=== PATIENT | male | born 1990 | race Caucasian/White ===

== ENCOUNTER 2023-08-28 15:53 | Inpatient (IN) | payer OTHER, SELFPAY ==
[2023-08-28 15:54] VITALS: BP 142/82; PULSE 96; RESP 14; TEMP 37.2; O2SAT 98; BMI 28.1
--- NOTE | 2023-08-28 16:04 | EDS_ITS ---
<Statement entered by Maddi Gonzáles MD - 08/28/23 21:59> I have personally performed a face to face assessment of the patient and have reviewed the SUNIL Note. Patient presents secondary to cough and congestion with rib pain. He has been sick for the past 3 weeks with cough and congestion. He thought he was getting better but then recently worsened again. states has been having sharp. Pain especially at night. He was seen at an urgent care in [place] earlier this week and told that he likely had a chest wall strain. states no testing was done at that time. Patient sitting upright in bed no acute distress. Head and neck examination unremarkable. Heart regular rate and rhythm. Lung sounds are slightly diminished at the bases bilaterally. No significant wheezing or rhonchi. Abdomen soft and nontender. 2 view chest x-ray per my interpretation shows bilateral lower lobe infiltrates. Lab work is reviewed and does not indicate an elevated white count or significant left shift. Given this, patient sent for CTA of the chest. CTA confirms pulmonary emboli with infiltrate versus pulmonary infarct. Patient be started on anticoagulation but given the infarcts will be observed in the hospital. Patient discussed with the hospitalist. HPI History of Present Illness Chief Complaint: Cough Narrative Narrative: 33-year-old male with past medical history of HTN has had 3 weeks of fever, chills, and productive cough. He states he thought his cough was getting better last week but then it worsened again. On [place] he developed right-sided rib cage pain that was worse at night. It seemed to improve but today he has left- sided rib cage pain. Both areas still feel uncomfortable. He also feels short of breath over the last few days. He still has subjective fever and night sweats. He does not smoke. He denies history of DVT/PE. 1 week ago he was on a flight but it was only 1 hour and 15 minutes. He has no leg pain or swelling. No hemoptysis or hormone use. [facility] Medical History (Updated 08/28/23 @ 19:[address] Sun Kan MD) Anxiety and depression Hypertension Kidney stones Home Medications escitalopram oxalate 10 mg tablet (Lexapro) 10 mg PO DAILY mood 08/28/23 [History Last Taken Unknown] lisinopril 10 mg tablet 10 mg PO DAILY blood pressure 08/28/23 [History Last [place] en Unknown] Allergy/AdvReac Type Severity Reaction Status Date / Time No Known Allergies Allergy Verified 08/28/23 15:54 Family History (Updated 08/28/23 @ 19:[address] Sun Kan MD) Father History of venous thromboembolism Hypertension Mother Hypertension Renal cancer Surgical History (Updated 08/28/23 @ 19:[address] Sun Kan MD) History of dental surgery Social History (Updated 08/28/23 @ 19:[address] Sun Kan MD) household members: significant other Smoking Status: Never smoker alcohol intake: never substance use type: does not use ROS ROS ED ROS Narrative Constitutional: Positive for fever, chills, malaise. CVS: Negative for chest pain. Respiratory: Positive for shortness of breath, cough. GI: Negative for abdominal pain, nausea, vomiting. EXAM Physical Exam Narrative Exam Narrative: CONST: Patient sitting in no acute distress. EYES: Normal inspection. NECK: Normal inspection. RESP: No respiratory distress, right basilar crackles. CVS: Regular rate and rhythm, no murmur, no gallop. SKIN: Color normal, no rash, warm, dry, intact. EXTREMITIES: Normal appearance, no pedal edema. NEURO: Oriented x4. PSYCH: Normal affect. Const Vital Signs: 08/28/23 15:54 08/28/23 16:18 08/28/23 18:20 Temperature 99 F Temperature Source Temporal Pulse Rate 96 106 H Respiratory Rate 14 20 H Respiratory Effort Short of Breath Respiratory Depth Normal Respiratory Pattern Normal Blood Pressure 142/82 H 137/81 H Blood Pressure Mean 102 99 Pulse Ox 98 97 Oxygen Delivery Method Room Air Room Air Room Air MDM MDM MDM Narrative Medical decision making narrative: History gathered from: Patient and family Patient had 3 weeks of fever, chills, and cough. He has now developed worsening cough, shortness of breath, bilateral lower rib pain. He appears uncomfortable but nontoxic. Vital signs are within normal limits. Heart is regular with no murmurs. There are right lower lobe crackles. Chest wall and abdomen are nontender. Differential includes viral illness, pneumonia and PE. Chest x-ray showed possible bilateral lower lobe pneumonia but white count returned normal. BMP unremarkable. EKG is nonischemic and troponin less than 3. If he had b ilateral pneumonia I would suspect leukocytosis with 3 weeks of symptoms. I ordered a CTA to rule out clot and it shows moderate PE and bilateral pulmonary infarcts. No right heart strain. Findings were discussed with the patient and his family and he was ordered morphine and Zofran for pain. After speaking with the hospitalist for admission I ordered Eliquis. Patient was admitted in stable condition. Lab Data Attestation: I reviewed the patient's lab results. Labs: Laboratory Results - last 24 hr 08/28/23 16:15 WBC 6.5 RBC 4.87 Hgb 15.1 Hct 43.7 MCV 89.7 MCH 31.0 MCHC 34.6 RDW Std Deviation 37.2 RDW Coeff of Shari 11.5 L Plt Count 211 MPV 8.5 Immature Gran % (Auto) 0.300 Neut % (Auto) 63.7 Lymph % (Auto) 23.8 [place] % (Auto) 10.5 H Eos % (Auto) 1.4 Baso % (Auto) 0.3 Absolute Neuts (auto) 4.1 Absolute Lymphs (auto) 1.54 Nucleated RBC % 0 Sodium 136 Potassium 4.2 Chloride 107 Carbon Dioxide 24.0 Anion Gap 5 BUN 22 H Creatinine 1.09 Estim Creat Clear Calc 95.00 Est GFR (MDRD) Af Amer 101 Est GFR (MDRD) Non-Af 84 BUN/Creatinine Ratio 20.2 H Glucose 117 H Calcium 9.0 Troponin I High Sens < 3 L Radiography Diagnostic Testing: Clinical Impression(s) from Imaging Studies Chest X-Ray 08/28/23 16:06 IMPRESSION: Bibasilar airspace disease suspicious for pneumonia. Electronically Signed: Harleen Mora MD at 16:57 EST Reading Location ID and State: [place]asmo Wade MD Tel , Service support , Chest CTA 08/28/23 17:03 IMPRESSION: 1. Moderate PE. No right heart strain. 2. Findings consistent with left lower lobe pulmonary infarct. 3. Pulmonary infarct versus pneumonia in the right lower lobe. Electronically Signed: Harleen Mora MD at 18:40 EST Reading Location ID and State: Erasmo Wade MD Tel , Service support , ADDENDUM: 08/28/23 1904 IMPRESSION: 1. Moderate PE. No right heart strain. 2. Findings consistent with left lower lobe pulmonary infarct. 3. Pulmonary infarct versus pneumonia in the right lower lobe. N.B. : The above Results were Read Back by Harleen Mora MD to Darius Hyde DO, and understanding confirmed on 08/28/2023 18:57:49 (ET). Electronically Signed: Harleen Mora MD at 18:40 EST Reading Location ID and State: [id number] / Tel , Service support , ED attending interpretation of 2-view chest x-ray shows normal heart size, no acute infiltrate, edema, or effusion. EKG Initial EKG: Attestation: I personally reviewed and interpreted this EKG as follows: Interpretation: Sinus Rhythm and No Acute Injury Pattern Comments: Normal sinus rhythm at [address] changes Discharge Plan Dx/Rx/DC Orders Clinical Impression: Pulmonary emboli, Infarctions, pulmonary Disposition Disposition: Acute Care Hospital [facility] Discharge Date/Time: 08/28/23 19:23
--- NOTE | 2023-08-28 16:06 | RAD_ITS ---
INDICATION: cough EXAMINATION/TECHNIQUE: X-RAY - XR Chest 2 Views COMPARISON: On. FINDINGS: LINES/DEVICES: None. LUNGS: Small right pleural effusion. Airspace disease in the lower lobes, greater on the right. MEDIASTINUM AND CARDIOVASCULAR STRUCTURES: Cardiac silhouette not enlarged. Central airways and mediastinal contour are unremarkable. BONES AND SOFT TISSUES: Unremarkable. RAD/Chest PA and Lateral IMPRESSION: Bibasilar airspace disease suspicious for pneumonia. Electronically Signed: Harleen oMra MD at 16:57 EST Reading Location ID and State: [id number] / Tel , Service support ,
--- NOTE | 2023-08-28 16:12 | ED.RN ---
NO OLD EKG
--- OUTSIDE RECORDS SUMMARY | 2023-08-28 16:27 | XMS RPT_ITS | CCD ---
Author Name Unknown Address [address] [place] [address] Organization [facility] Care Team Providers Care Spacecraft Systems Engineer Name Role Phone SHARLA ELOISA Attending Unavailable SHARLA, ELOISA Consulting Unavailable MANSFIELD, ELOISA Primary Care Unavailable MANSFIELD, ELOISA Admitting Unavailable PROVIDER, UNKNOWN Consulting Unavailable Problems Problem Classification Problem Date Documented Date Episodic/Chronic Essential hypertension (1 source) Essential (primary) hypertension; Translations: [Essential (primary) hypertension] Onset: 06-23-2023 Chronic Other screening for suspected conditions (not mental disorders or infectious disease) (1 source) Encounter for screening for cardiovascular disorders; Translations: [Encounter for screening for cardiovascular disorders] Onset: 06-23-2023 Episodic Results Test Name Value Interpretation Reference Range Facil ity Encounters Encounter Date Encounter Type Care Provider Facility Start: 06-23-2023 End: 06-23-2023 ambulatory [facility] Payers Date Payer Category Payer Unknown [id number] Unknown [id number] Summary Purpose Family History No Family History Records FoundNo Family History Records Found Advance Directives No Advanced Directives Records FoundNo Advanced Directives Records Found Additional Source Comments (unrecognized sect ion and content) No Status Records FoundNo Status Records Found INFORMATION SOURCE (unrecogn ized section and content) DATE CREATED AUTHOR AUTHOR'S ORGANIZ ATION 07/14/[address] [facility] FOR RECORDS PERTAINING TO PATIENTS WHO ARE OR HAVE BEEN ENROLLED IN A CHEMICAL DEPENDENCY/SUBSTANCEABUSE PROGRAM, SOME INFORMATION MAY BE OMITTED. This clinical summary was aggregated from multiple sources. Caution should be exercised in using it in the provision of clinical care. This summary normalizes information from multiple sources, and as a consequence, information in this document may materially change the coding, format and clinical context of patient data. In addition, data may be omitted in some cases. CLINICAL DECISIONS SHOULD BE BASED ON THE PRIMARY CLINICAL RECORDS. [facility]. provides no warranty or guarantee of the accuracy or completeness of information in this document.
[2023-08-28 16:28] LABS: Absolute Lymphocyte Count 1.54 X10^3/uL (0.83-4.51); Absolute Neutrophil Count 4.1 X10^3/uL (2.0-7.7); Basophil# 0.02 X10^3/uL; Basophil% 0.3 % (0-1); Eosinophil# 0.09 X10^3/uL; Eosinophils% 1.4 % (0-5); Hematocrit 43.7 % (40-54); Hemoglobin 15.1 g/dL (13.0-16.5); Lymphocyte # 1.54 X10^3/ul (0.83-4.51); Lymphocyte % 23.8 % (19-41); Mean Corp Hgb Conc 34.6 g/dL (32-36); Mean Corpuscular Volume 89.7 fL (80-94); Mean Platelet Vol. 8.5 fl (6.2-12.0); Monocyte# 0.68 X10^3/uL; Monocyte% 10.5 % (0-10); NRBC Flagged by Analyzer 0 % (0-5); Neutrophil # 4.12 X10^3/uL (2.7-7.7); Neutrophil % 63.7 % (47-70); Platelet Count 211 K/mm3 (150-450); RBC Distribution Width CV 11.5 % (11.6-14.6); RBC Distribution Width SD 37.2 fl (35.1-43.9); Red Blood Count 4.87 M/mm3 (4.6-6.2); White Blood Count 6.5 K/mm3 (4.4-11.0)
[2023-08-28 16:47] LABS: Anion Gap 5 (5-15); BUN 22 mg/dL (7-18); BUN/Creat Ratio 20.2 RATIO (10-20); Chloride 107 mmol/L (98-107); Creatinine, Serum 1.09 mg/dL (0.70-1.30); EST Glomerular Filtration Rate 84 mL/min (>60); Est Glom Filt Rate - Afr Amer 101 mL/min (>60); Glucose 117 mg/dL (74-106); Potassium 4.2 mmol/L (3.5-5.1); Sodium Level 136 mmol/L (136-145); Troponin-I HS < 3 pg/mL (3.0-78.0)
--- NOTE | 2023-08-28 17:03 | CT_ITS ---
We are attempting to reach an attending provider to discuss findings. An addendum with communication details will be sent when the communication is complete. EXAM: CT ANGIOGRAPHY CHEST WITHOUT AND WITH INTRAVENOUS CONTRAST CLINICAL INDICATION: chest pain TECHNIQUE: Helically acquired angiography images were obtained of the chest without and with intravenous contrast. This CT exam was performed using one or more of the following dose reduction techniques: automated exposure control, adjustment of the mA and/or kV according to patient size, and/or use of iterative reconstruction technique. MIP reconstructed images were created and reviewed. CONTRAST: IV 100mL Isovue-370 COMPARISON: No relevant prior studies available. FINDINGS: PULMONARY ARTERIES: Moderate bilateral pulmonary emboli. Emboli in left upper and lower lobe segmental arteries. Emboli in right upper and lower lobe subsegmental arteries. AORTA: Unremarkable. Normal in caliber. No evidence of dissection. GREAT VESSELS OF AORTIC ARCH: Unremarkable. Normal in caliber. No evidence of dissection. LUNGS AND PLEURAL SPACES: Airspace disease in the left lower lobe suspicious for pulmonary infarcts. Moderate airspace disease in the right lower lobe consistent with pneumonia versus pulmonary infarct. Trace bilateral pleural effusions. No mass. HEART: Heart size is normal. RV/LV ratio 0.9. No pericardial effusion. No significant coronary artery calcifications. MEDIASTINUM: Unremarkable. No mediastinal or hilar adenopathy. Esophagus is unremarkable. No hiatal hernia. THYROID: Unremarkable. No thyroid lesions. BONES/JOINTS: Unremarkable. No suspicious lytic or blastic abnormality. LYMPH NODES: Mild right hilar adenopathy. CT/CTA Chest W/WO Contrast IMPRESSION: 1. Moderate PE. No right heart strain. 2. Findings consistent with left lower lobe pulmonary infarct. 3. Pulmonary infarct versus pneumonia in the right lower lobe. Electronically Signed: Harleen Mora MD at 18:40 EST Reading Location ID and State: [id number] / Tel , Service support ,
[2023-08-28 18:20] VITALS: BP 137/81; PULSE 106; RESP 20; O2SAT 97
--- NOTE | 2023-08-28 18:50 | HP.PCM.HOS_ITS ---
HPI - General General Date of Admission: 08/28/23 Date of Service: 08/28/23 Chief Complaint: Fever, chills, cough, chest pain, dyspnea. HPI Narrative The patient is a 33 y/o M w/ PMHx: HTN, Anxiety and Depression who presents to the [facility] ED on 08/28/23 with history of 3 weeks of intermittent fever, chills and productive cough initially improving however worsened over the last week with onset of right-sided pleuritic discomfort worse at night with some improvement however he developed left-sided rib discomfort on day of presentation which persisted with onset of dyspnea and continued intermittent fevers as well as night sweats with history of short less than 1-1/2-hour flight 1 week prior and no history of lower extremity swelling or pain and given persistence prompted eventual ED evaluation. Of note patient's significant other who is present in the ED was sick about a week prior to him becoming ill initially with upper respiratory type symptoms herself however these eventually resolved. He does report a family history in his father of VTE. Patient during [place] time while he had was ill and feeling worse did have increased fatigue malaise and at one point he admits to laying in bed for probably nearly a day. Workup in the ED included T99, heart rate initially 96 with most recent repeat 106, BP 142/82 initially with most recent repeat 137/81, respiratory rate 20, 97% on room air, CBC with WBC 6.5, hemoglobin 15.1, platelet 211 without marked shift, BMP with BUN/creatinine 22/1.09, glucose 117, troponin less than 3, blood culture x 2 pending per ED CTPA with moderate PE with no evidence of any heart strain, fi ndings consistent with a left lower lobe pulmonary infarct, pulmonary infarct versus pneumonia right lower lobe, chest x-ray with bibasilar airspace disease, EKG with normal sinus rhythm with no acute evidence of ischemia. Discussed with ED provider and will obtain hypercoagulable panel within patient to be administered Eliquis. [facility] Medical History (Updated 08/28/23 @ 19:[address] Sun Kan MD) Anxiety and depression Hypertension Kidney stones Home Medications escitalopram oxalate 10 mg tablet (Lexapro) 10 mg PO DAILY mood 08/28/23 [History Last Taken Unknown] lisinopril 10 mg tablet 10 mg PO DAILY blood pressure 08/28/23 [History Last Taken Unknown] Allergy/AdvReac Type Severity Reaction Status Date / Time No Known Allergies Allergy Verified 08/28/23 15:54 Family History (Updated 08/28/23 @ 19:[address] Sun Kan MD) Father History of venous thromboembolism Hypertension Mother Hypertension Renal cancer Surgical History (Updated 08/28/23 @ 19:[address] Sun Kan MD) History of dental surgery Social History (Updated 08/28/23 @ 19:[address] Sun Kan MD) household members: significant other Smoking Status: Never smoker alcohol intake: never substance use type: does not use ROS ROS Narrative Admission Review of Systems: CONSTITUTIONAL: No weight loss, + fever, chills, weakness or fatigue. HEENT: Eyes: No visual loss, blurred vision, double vision or yellow sclerae. Ears, Nose, Throat: No hearing loss, sneezing, congestion, runny nose or sore throat. SKIN: No rash or itching, lesions, wounds. CARDIOVASCULAR: + Pleuritic chest pain. No palpitations, edema, orthopnea, syncopal events. RESPIRATORY: + Dyspnea, cough with occasional sputum production. No wheezing, hemoptysis. GASTROINTESTINAL: No anorexia, nausea, vomiting or diarrhea, abdominal pain, melena, BRBPR. GENITOURINARY: No dysuria, frequency, urgency or retention. NEUROLOGICAL: No headache, dizziness, syncope, paralysis, ataxia, numbness or tingling in the extremities, focal weakness, change in bowel or bladder control, seizure. MUSCULOSKELETAL: + muscle, back pain, joint pain or stiffness. HEMATOLOGIC: No anemia, bleeding or bruising. LYMPHATICS: No enlarged nodes. No history of splenectomy. PSYCHIATRIC: + History of depression and anxiety. ENDOCRINOLOGIC: + reports of sweating, cold or heat intolerance. No polyuria or polydipsia. ALLERGIES: No history of asthma, hives, eczema or rhinitis. Vital Signs Vital Signs Vital Signs: 08/28/23 15:54 08/28/23 16:18 08/28/23 18:20 Temperature 99 F Temperature Source Temporal Pulse Rate 96 106 H Respiratory Rate 14 20 H Respiratory Effort Short of Breath Respiratory Depth Normal Respiratory Pattern Normal Blood Pressure 142/82 H 137/81 H Blood Pressure Mean 102 99 Pulse Ox 98 97 Oxygen Delivery Method Room Air Room Air Room Air Weight Weight: 184 lb 15.485 oz Body Mass Index (BMI) 28.1 Physical Exam Narrative Physical Examination: General: Awake, alert, oriented x 3 and cooperative, seated upright in the ED bed, mildly anxious appearing. Skin: Normal color, normal turgor, no icterus, no cyanosis. HEENT: AT/NC, EOMI, PERRLA, MMM, no carotid bruits or JVD noted. Lungs: Diminished, greater bases, mildly coarse, right greater than left, no evidence of any distress, no wheezing noted. Heart: Tachycardic with regular rhythm; no gallop, rub audible. Abdomen: Soft, NTTP, ND, mildly hyperactive BS, no HSM. Extremities: No cyanosis, clubbing, or edema, no tender to palpation of bilate ral lower extremity/calf regions. Neurological: Patient awake, alert, oriented as noted, cognitive function intact; pupils equally reactive to light and accommodation, cranial nerves II- XII grossly normal, moving all 4 extremities, no focal deficits, strength mildly to moderately global decrease secondary to acute presentation complaints. Psychiatric: Affect appears anxious, does have underlying depression anxiety. Results Lab / Micro Data 08/28/23 16:15 08/28/23 16:15 Labs: Laboratory Results - last 24 hr 08/28/23 16:15: WBC 6.5, RBC 4.87, Hgb 15.1, Hct 43.7, MCV 89.7, MCH 31.0, MCHC 34.6, RDW Std Deviation 37.2, RDW Coeff of Shari 11.5 L, Plt Count 211, MPV 8.5, Immature Gran % (Auto) 0.300, Neut % (Auto) 63.7, Lymph % (Auto) 23.8, [place] % (Auto) 10.5 H, Eos % (Auto) 1.4, Baso % (Auto) 0.3, Absolute Neuts (auto) 4.1, Absolute Lymphs (auto) 1.54, Nucleated RBC % 0, Sodium 136, Potassium 4.2, Chloride 107, Carbon Dioxide 24.0, Anion Gap 5, BUN 22 H, Creatinine 1.09, Estim Creat Clear Calc 95.00, Est GFR (MDRD) Af Amer 101, Est GFR (MDRD) Non-Af 84, BUN/Creatinine Ratio 20.2 H, Glucose 117 H, Calcium 9.0, Troponin I High Sens < 3 L Im[facility] Radiology Impression Chest X-Ray 08/28/23 16:06 IMPRESSION: Bibasilar airspace disease suspicious for pneumonia. Electronically Signed: Harleen Mora MD at 16:57 EST Reading Location ID and State: Erasmo Wade MD Tel , Service support , Chest CTA 08/28/23 17:03 IMPRESSION: 1. Moderate PE. No right heart strain. 2. Findings consistent with left lower lobe pulmonary infarct. 3. Pulmonary infarct versus pneumonia in the right lower lobe. Electronically Signed: Harleen Mora MD at 18:40 EST Reading Location ID and State: [place] / Tel , Service support , Assessment & Plan Assessment/Plan (1) Pulmonary emboli: PLAN: Plan The patient is a 33 y/o M w/ PMHx: HTN, Anxiety and Depression who presents to the [facility] ED on 08/28/23 with history of 3 weeks of intermittent fever, chills and productive cough initially improving however worsened over the last week with onset of right-sided pleuritic discomfort worse at night with some improvement however he developed left-sided rib discomfort on day of presentation which persisted with onset of dyspnea and continued intermittent fevers as well as night sweats with history of short less than 1-1/2-hour flight 1 week prior and no history of lower extremity swelling or pain and given persistence prompted eventual ED evaluation. #1. Recent fever, chills, productive cough concurrently with dyspnea, chest pain secondary to Pulmonary Embolism with possible left lower lobe pulmonary infarct as well as pulmonary infarct versus pneumonia right lower lobe with possible initial URI/acute viral syndrome: EKG without acute findings, CTPA with moderate PE with no evidence of any heart strain, findings consistent with a left lower lobe pulmonary infarct, pulmonary infarct versus pneumonia right lower lobe, chest x-ray with bibasilar airspace disease, troponin less than 3. Patient did have recent travel however it was following onset of symptoms and it was less than 1.5 hours. + family history of hypercoaguable state. Will admit to PCU, maintain on cardiac telemetry. Given no evidence of any cardiac strain will defer echocardiogram.given age will obtain hypercoaguable panel obtained in ED prior to administration anticoagulation. Will continue therapeutic Eliquis regimen with pending AM insurance oral regimen investigation. Suspect patient with recent possible respiratory viral illness however still unable to discern exactly if right lower lobe pneumonia, in the interim will maintain on IV azithromycin and IV Rocephin, HOB, IS parameters w/ pending sputum cultures, COVID PCR and urine antigens as well as procalcitonin and if further evaluation more consistent with viral etiology will de-escalate off antibiotic therapy. Bld cx x 2 obtained in the ED. #2. Patient with a hypercoagulable family history: Father with history of several VTE with no clear hypercoagulable state himself and unclear if these were provoked but concerned enough. Hypercoagulable panel pending as noted. #3. Hypertension: Continue home regimen including lisinopril, PRN hydralazine. #4. Anxiety and depression: We will continue patient home Lexapro regimen. Discussed with patient as he does report increased depression through the winter season follow-up with counseling and therapy as well as PCP. #5. DVT prophylaxis: As noted will initiate Eliquis therapy. Charges/Coding Visit Charges Inpatient E&M: 86371 Init Hosp L3
--- OUTSIDE RECORDS SUMMARY | 2023-08-28 19:07 | XMS RPT_ITS | CCD ---
Author Name Unknown Address [address] [place] [address] Organization [facility] Care Team Providers Care Professor Of Mathematics Name Role Phone SHARLA ELOISA Attending Unavailable SHARLA, ELOISA Consulting Unavailable FORTESCUE, ELOISA Primary Care Unavailable FORTESCUE, ELOISA Admitting Unavailable PROVIDER, UNKNOWN Consulting Unavailable [...] Provider Facility Start: 06-23-2023 End: 06-23-2023 ambulatory [facility] Payers Date Payer Category Payer Unknown [id number] Unknown [id number] Summary Purpose Family History No Family History Records FoundNo Family History Records Found Advance Directives No Advanced Directives Records FoundNo Advanced Directives Records Found Additional Source Comments (unrecognized sect ion and content) No Status Records FoundNo Status Records Found INFORMATION SOURCE (unrecogn ized section and content) DATE CREATED AUTHOR AUTHOR'S ORGANIZ ATION 07/14/2023 [facility] FOR RECORDS PERTAINING TO PATIENTS WHO ARE [...] BE BASED ON THE PRIMARY CLINICAL RECORDS. [facility] [employer] [facility]. provides no warranty or guarantee of the accuracy or completeness of information in this document.
[2023-08-28] MEDS: Morphine 4 MG/ML Syringe IV (19:13)
[2023-08-28] MEDS: Ondansetron 4 MG/2 ML Vial IV (19:14)
[2023-08-28] MEDS: APIXABAN 5 MG TABLET 10 MG PO (19:14)
[2023-08-28 19:22] VITALS: BP 154/92; PULSE 108; RESP 16; O2SAT 98
[2023-08-28 19:31] LABS: BNP,B-Type NATRIURETIC PEPTIDE 4.2 pg/mL (0-100)
[2023-08-28 19:41] VITALS: BMI 27.6
[2023-08-28 19:47] VITALS: BP 133/75; PULSE 97; RESP 18; TEMP 36.8; O2SAT 97
[2023-08-28] MEDS: 0.9% Normal Saline (1000mL) 1,000 ML 999 ML IV (19:56)
[2023-08-28] MEDS: 0.9% Normal Saline (1000mL) 1,000 ML 125 ML IV (20:56)
[2023-08-28] MEDS: Ceftriaxone 1 GM/50 ML BAG IV (20:56)
[2023-08-28] MEDS: oxyCODONE 5 MG Tablet PO (21:04)
[2023-08-28] MEDS: guaiFENesin 1,200 MG Tablet 1200 MG PO (21:05)
[2023-08-28] MEDS: Azithromycin 500 MG in Dextrose 5%-Water (250mL Bag) 250 ML 250 MG IV (21:45)
[2023-08-28] MEDS: Temazepam 15 MG Capsule PO (21:49)
[2023-08-28 22:30] VITALS: O2SAT 97
[2023-08-28 23:00] VITALS: TEMP 37.6
[2023-08-28] MEDS: Acetaminophen 325 MG Tablet 650 MG PO (23:09)
[2023-08-29 00:10] VITALS: TEMP 36.7
[2023-08-29 03:00] VITALS: BP 104/71; PULSE 85; RESP 16; TEMP 36.6; O2SAT 98
[2023-08-29 03:44] VITALS: BMI 27.6
[2023-08-29 06:12] LABS: Absolute Lymphocyte Count 1.42 X10^3/uL (0.83-4.51); Basophil# 0.03 X10^3/uL; Basophil% 0.6 % (0-1); Eosinophil# 0.11 X10^3/uL; Eosinophils% 2.1 % (0-5); Hematocrit 40.4 % (40-54); Hemoglobin 13.7 g/dL (13.0-16.5); Lymphocyte # 1.42 X10^3/ul (0.83-4.51); Lymphocyte % 26.9 % (19-41); Mean Corp Hgb Conc 33.9 g/dL (32-36); Mean Corpuscular Hgb 30.9 pg (27.0-32.0); Mean Corpuscular Volume 91.2 fL (80-94); Mean Platelet Vol. 8.7 fl (6.2-12.0); Monocyte# 0.68 X10^3/uL; Monocyte% 12.9 % (0-10); NRBC Flagged by Analyzer 0 % (0-5); Neutrophil # 3.02 X10^3/uL (2.7-7.7); Neutrophil % 57.1 % (47-70); Platelet Count 166 K/mm3 (150-450); RBC Distribution Width CV 11.6 % (11.6-14.6); RBC Distribution Width SD 38.9 fl (35.1-43.9); Red Blood Count 4.43 M/mm3 (4.6-6.2); White Blood Count 5.3 K/mm3 (4.4-11.0)
[2023-08-29 06:37] LABS: ALB/GLOB Ratio 0.6 RATIO (0.9-2.4); AST(SGOT) 17 U/L (15-37); Alanine Aminotransfer ALT/SGPT 24 U/L (16-61); Albumin, Serum 2.8 g/dL (3.2-5.0); Alkaline Phosphatase 68 U/L (45-117); Anion Gap 2 (5-15); BUN 15 mg/dL (7-18); BUN/Creat Ratio 15.2 RATIO (10-20); Calcium,Total 8.2 mg/dL (8.5-10.1); Chloride 110 mmol/L (98-107); Creatinine, Serum 0.99 mg/dL (0.70-1.30); EST Glomerular Filtration Rate 94 mL/min (>60); Est Glom Filt Rate - Afr Amer 113 mL/min (>60); Globulin 4.5 g/dL (2.2-4.2); Glucose 98 mg/dL (74-106); Potassium 4.4 mmol/L (3.5-5.1); Protein, Total 7.3 g/dL (6.4-8.2); Sodium Level 139 mmol/L (136-145)
[2023-08-29 07:54] VITALS: O2SAT 96; O2SAT 98
--- NOTE | 2023-08-29 09:35 | DS.PCM_ITS ---
Providers Date of Admission: 08/28/23 Date of Discharge: 08/29/23 Primary Care Physician: Dilia Zavala PA-C Reason For Visit: PULMONARY EMBOLI, POSS PNA Diagnosis Discharge Diagnosis (1) Pulmonary emboli: Status: Acute Code(s): I26.99 - Other pulmonary embolism without acute cor pulmonale Medications at Discharge Home Medications escitalopram oxalate 10 mg tablet (Lexapro) 10 mg PO DAILY mood 08/28/23 lisinopril 10 mg tablet 10 mg PO DAILY blood pressure 08/28/23 apixaban 5 mg (74 tabs) tablets in a dose pack (Eliquis DVT-PE Treat 30D Start) 5 mg PO BID #74 tabs 08/29/23 Hospital Course Operations None Procedures EKG and - (Chest x-ray/CTA chest) Summary of Care Provided Minutes Spent on Discharge: 38 Hospital Course: Mr. Jeffery is a 33-year-old white male who presented to the emergency department at [facility] on 08/28/2023 complaining of cough, chest pain, shortness of breath with intermittent fevers and chills. Patient reported on presentation that he had about a 3-week history of intermittent fevers and chills with productive cough initially however within the last week prior to presentation he had right-sided pleuritic chest pain that was worse at night and developed some left-sided rib discomfort on the day of presentation along with the onset of dyspnea. He was not able to give a Tmax at home however his Tmax here was 99.5. He recently traveled with a short flight that was about an hour and a half last week and had no history of lower extremity pain or swelling. Given the persistence of his shortness of breath and the new onset of his chest pain he came the emergency department to be evaluated. He does report a family history of previous DVT in his father. He did report during his initial illness over [place] he was feeling ill and had increased fatigue and malaise and laid in his bed for approximately 1 day without moving much. Vital signs on arrival showed a temperature of 99, heart rate was maximally at 106 but had resolved back to the 80s by the time of discharge, blood pressure was 142/82, respiratory rate was 20 and oxygen saturations were 97% on room air. CBC was unremarkable with no white count or left shift. His BMP was unremarkable. His troponin was less than 3. Chest x-ray showed bibasilar L space disease and EKG was normal sinus rhythm with no acute ischemia. A CTA of his chest was performed and showed moderate sized PE with no evidence of right heart strain and findings consistent with a left lower lobe pulmonary infarct and right lower lobe pulmonary infarct versus consolidation. PE was found in both pulmonary arteries in the left upper and lower segmental arteries as well as the right upper and lower subsegmental arteries. Blood cultures were obtained on admission and pending at the time of discharge. I highly doubtful that he has any infectious process given his normal white count, normal procalcitonin and on exam relatively no clinical findings consistent with infection. I do suspect his low-grade temperature elevations which do not appear to be truly fevers are related to PE. Prior to administering. I question whether or not her outpatient vital signs were done while she was Eliquis in the emergency department hypercoagulability panel was obtained and pending at the time of discharge. He was maintained on Eliquis 10 mg p.o. twice daily from the time of admission to discharge and we discharged him with Eliquis as well as a prescription card to assist financially as the patient is uninsured. I have asked him to follow-up as an outpatient with hematology given the fact that this seems to be relatively unprovoked and he has a family history of thromboembolic disease. I did discuss with him that he will likely need to be on therapy at least 3 to 6 months and then ongoing therapy will be determined by hematology. Referral to Dr. Benson was made at the time of discharge and of asked the patient to call on Wednesday to set up a follow-up appointment to be seen within the next month. I have also asked him to follow-up with his primary care physician within the next 1 to 2 weeks. The patient was able to be discharged home in stable condition on 08/29/2023 with Eliquis. We did review the side effects of Eliquis including bleeding and discussed what to do with bleeding incidences mild and severe. Discharge diagnoses: Acute bilateral segmental and subsegmental pulmonary emboli Shortness of breath improved Chest pain-improved Family history of VTE History of hypertension Depression Anxiety Physical Exam Const alert, oriented x3, no apparent distress, average body habitus, no limitations, healthy appearing and well nourished Constitutional Narrative: Very pleasant, middle-aged, white male, sitting up in bed, during my exam family arrived and was at bedside, patient appears comfortable and nontoxic General Appearance: cooperative, comfortable, well kempt and well developed Orientation / Consciousness: awake, oriented to person, oriented to place and oriented to time Exam Limitations: no limitations HEENT normocephalic, head/scalp atraumatic, hearing grossly normal bilaterally and moist oral mucous membranes HEENT Narrative: Mallampati 2, no thrush Eyes PERRL and EOMs intact bilaterally Eyes Narrative: No scleral icterus Neck no lymphadenopathy and supple Neck Narrative: Trachea midline, no thyroid enlargement Resp normal respiratory effort, no retractions, no use of accessory muscles and clear to auscultation bilaterally Resp Narrative: Comfort breathing on ambient air and able to take deep breaths without any significant discomfort Auscultation: Negative for rales, rhonchi or wheezes Cardio regular rate, regular rhythm, S1 normal heart sound, S2 normal heart sound, no murmurs, no rub, no gallops and no clicks GI normal to inspection, nondistended, normoactive bowel sounds, soft to palpation and non-tender Extremity no clubbing, cyanosis or edema Extremity Narrative: Pedal pulses are 2+ Skin no rashes or lesions noted, no wounds, skin turgor normal and no jaundice Neuro oriented x3, CN's II-XII intact bilaterally, moves all extremities and no focal motor deficits Speech: speech normal Psych affect normal Psych Narrative: Eye contact is good, patient is very pleasant, interacts appropriately Weight / BMI Weight Weight: 82.3 kg Body Mass Index (BMI) 27.6 ABG / Lab / Microbiology Data 08/29/23 05:58 08/29/23 05:58 Laboratory: Laboratory Results - last 24 hr 08/28/23 16:15: WBC 6.5, RBC 4.87, Hgb 15.1, Hct 43.7, MCV 89.7, MCH 31.0, MCHC 34.6, RDW Std Deviation 37.2, RDW Coeff of Shari 11.5 L, Plt Count 211, MPV 8.5, Immature Gran % (Auto) 0.300, Neut % (Auto) 63.7, Lymph % (Auto) 23.8, [place] % (Auto) 10.5 H, Eos % (Auto) 1.4, Baso % (Auto) 0.3, Absolute Neuts (auto) 4.1, Absolute Lymphs (auto) 1.54, Nucleated RBC % 0, Sodium 136, Potassium 4.2, Chloride 107, Carbon Dioxide 24.0, Anion Gap 5, BUN 22 H, Creatinine 1.09, Estim Creat Clear Calc 95.00, Est GFR (MDRD) Af Amer 101, Est GFR (MDRD) Non-Af 84, BUN/Creatinine Ratio 20.2 H, Glucose 117 H, Calcium 9.0, Troponin I High Sens < 3 L 08/28/23 19:02: B-Natriuretic Peptide 4.2, Procalcitonin 0.10 H 08/29/23 05:58: WBC 5.3, RBC 4.43 L, Hgb 13.7, Hct 40.4, MCV 91.2, MCH 30.9, MCHC 33.9, RDW Std Deviation 38.9, RDW Coeff of Shari 11.6, Plt Count 166, MPV 8.7, Immature Gran % (Auto) 0.400, Neut % (Auto) 57.1, Lymph % (Auto) 26.9, [place] % (Auto) 12.9 H, Eos % (Auto) 2.1, Baso % (Auto) 0.6, Absolute Neuts (auto) 3.0, Absolute Lymphs (auto) 1.42, Nucleated RBC % 0, Sodium 139, Potassium 4.4, Chloride 110 H, Carbon Dioxide 27.0, Anion Gap 2 L, BUN 15, Creatinine 0.99, Estim Creat Clear Calc 104.60, Est GFR (MDRD) Af Amer 113, Est GFR (MDRD) Non-Af 94, BUN/Creatinine Ratio 15.2, Glucose 98, Calcium 8.2 L, Total Bilirubin 0.40, AST 17, ALT 24, Alkaline Phosphatase 68, Total Protein 7.3, Albumin 2.8 L, Globulin 4.5 H, Albumin/Globulin Ratio 0.6 L Microbiology: Microbiology 08/29/23 08:40 Urine, Clean Catch Legionella Antigen - Final 08/29/23 08:40 Urine, Clean Catch Streptococcus pneumoniae Antigen (M - Final 08/28/23 19:03 Mucosa - Nasopharyngeal Coronavirus COVID-19 PCR - Final 08/28/23 19:03 Mucosa - Nasopharyngeal Respiratory Panel (PCR) - Final Radiography Diagnostic Testing: Radiology Impression Chest X-Ray 08/28/23 16:06 IMPRESSION: Bibasilar airspace disease suspicious for pneumonia. Electronically Signed: Harleen Mora MD at 16:57 EST Reading Location ID and State: [place] / Tel , Service support , Chest CTA 08/28/23 17:03 IMPRESSION: 1. Moderate PE. No right heart strain. 2. Findings consistent with left lower lobe pulmonary infarct. 3. Pulmonary infarct versus pneumonia in the right lower lobe. Electronically Signed: Harleen Mora MD at 18:40 EST Reading Location ID and State: [place] Wade MD Tel , Service support , ADDENDUM: 08/28/23 1904 IMPRESSION: 1. Moderate PE. No right heart strain. 2. Findings consistent with left lower lobe pulmonary infarct. 3. Pulmonary infarct versus pneumonia in the right lower lobe. N.B. : The above Results were Read Back by Harleen Mora MD to Darius Hyde DO, and understanding confirmed on 08/28/2023 18:57:49 (ET). Electronically Signed: Harleen Mora MD at 18:40 EST Reading Location ID and State: [place] / Tel , Service support , D/C Instructions Discharge Diet: No restrictions Discharge Activity: Return to Normal Activity Return to work on: 08/31/23 May resume sexual activity in: No Restrictions Meaningful Use Info Meaningful Use Diagnoses (Choose all that apply): None applicable Discharge Plan Admission Admit Date/Time: 08/28/23 18:51 Primary Reason for Your Visit: Cough/shortness of breath/chest pain Attending Provider: Faetmeh Clifford Primary Care Provider: Dilia Zavala Consulting Providers: [place] Discharge Orders/Prescriptions Prescriptions: New Eliquis DVT-PE Treat 30D Start 5 mg (74 tabs) tablets,dose pack 5 mg PO BID Qty: 74 0RF Continued lisinopril 10 mg tablet 10 mg PO DAILY Patient Comments: TAKE 1 TABLET BY MOUTH ONCE DAILY escitalopram oxalate [Lexapro] 10 mg tablet 10 mg PO DAILY Referrals / Follow Up: Valente Benson MD [Med Staff - Active Staff] - See Referral Note (Call on Wednesday to set up an appointment to be seen within the next month at the [facility] building) Dilia Zavala PA-C [Primary Care Provider] - Disposition Disposition (needs filled in before D/C Order can be placed): Home, Self Care Charges/Coding Visit Charges Inpatient E&M: 79668 Disch Hosp >30min
[2023-08-29 09:44] VITALS: BP 143/79; PULSE 106; RESP 16; TEMP 36.8; O2SAT 98
[2023-08-29] MEDS: APIXABAN 5 MG TABLET 10 MG PO (09:47)
[2023-08-29] MEDS: guaiFENesin 1,200 MG Tablet 1200 MG PO (09:47)
[2023-09-07 16:09] LABS: Anti-Cardiolipin Ab, IgG, Qn < 9 GPL U/mL (0-14); Anti-Cardiolipin Ab, IgM, Qn < 9 MPL U/mL (0-12); Anti-Thrombin 3 AG, Immunol 120 % (72-124); Antithrombin 3 Function 117 % (75-135); Beta-2-Glycoprotein I IgA <9 (0-25); Beta-2-Glycoprotein I IgG <9 (0-20); Beta-2-Glycoprotein I IgM <9 (0-32); Protein C Antigen 94 % (60-150); Protein C, Functional 94 % (73-180)
== END 2023-08-29 11:33 | disposition home or self-care (01) | DRG 176 ==
LOC: ED 16:35 → PCU 19:05
PROVIDERS: Physician Assistant; Admitting Provider Family Medicine; Emergency Provider Emergency Medicine; PCP Family Medicine; Visit Provider Internal Medicine
DX: I26.99 Other pulmonary embolism without acute cor pulmonale (principal); F32.A Depression, unspecified; I26.94 Multiple subsegmental thrombotic pulmonary emboli without acute cor pulmonale; I10 Essential (primary) hypertension; F41.9 Anxiety disorder, unspecified; Z59.7 Insufficient social insurance and welfare support; Z79.01 Long term (current) use of anticoagulants; Z79.899 Other long term (current) drug therapy; Z83.2 Family history of diseases of the blood and blood-forming organs and certain disorders involving the immune mechanism
CPT/HCPCS: 36415; 71046; 71275; 80048; 80053; 81240; 81241; 83880; 84145; 84484; 85025; 85300; 85301; 85302; 85303; 86146; 86147; 87040; 87070; 87205; 87449; 87633; 87635; 93005; 99283; J7030; Q9967; A4216; J2405

== ENCOUNTER 2024-11-05 11:01 | Emergency (ER) | payer OTHER, SELFPAY ==
[2024-11-05 11:02] VITALS: BP 150/81; PULSE 82; RESP 15; TEMP 36.3; O2SAT 99; BMI 28.1
--- NOTE | 2024-11-05 11:27 | ED.VIS.LOWEX ---
HPI History of Present Illness HPI Narrative: 34-year-old male who lifts weights and works out. Complaining of atraumatic right hip and upper leg pain. Denies any fall injury or trauma. No fever or redness or swelling. No prior history or surgery. Chief Complaint: Lower Extremity Injury Informant: patient and spouse/S.O. Occured/Mechanism Mechanism/Context: No injury and No blunt trauma Onset/Context/Timing Onset: Today and Yesterday Context: Gradual Onset Timing: Continuous Quality of Pain: Sharp Current Severity: Mild Maximum Severity: Mild Narrative Narrative: 34-year-old male complaining of atraumatic right hip and thigh pain. No trauma. No fever or chills. No redness or discoloration. Prior history of hypertension, kidney stones and a prior PE but he is off blood thinners. Prior similar symptoms: No Recent Illness/Hospitalization: No PFSH PFSH Medical History Hx of deep venous thrombosis Anxiety and depression Kidney stones Hypertension Home Medications ?Medication ?Instructions ?Recorded ?Last Taken ?Type escitalopram oxalate 10 mg tablet 10 mg PO DAILY mood 08/28/23 Unknown History (Lexapro) lisinopril 10 mg tablet 10 mg PO DAILY blood pressure 08/28/23 Unknown History apixaban 5 mg (74 tabs) tablets in 5 mg PO BID #74 tabs 08/29/23 Unknown Rx a dose pack (Eliquis DVT-PE Treat 30D Start) Allergy/AdvReac Type Severity Reaction Status Date / Time No Known Allergies Allergy Verified 08/28/23 15:54 Family History Father History of venous thromboembolism Hypertension Mother Hypertension Renal cancer Surgical History History of dental surgery Social History household members: significant other Smoking Status: Never smoker alcohol intake: never substance use type: does not use ROS ROS ED ROS Narrative Denies recent illness. Constitutional Constitutional ED: Denies chills or fever(s) Eyes Eyes: Denies blurry vision ENT ENT ED: Denies ear pain Cardiovascular Cardiovascular: Denies chest pain Respiratory/Chest Respiratory/Chest: Denies cough or dyspnea Gastrointestinal Gastrointestinal: Denies abdominal pain Genitourinary Genitourinary ED: Denies dysuria or hematuria Musculoskeletal Musculoskeletal: Denies arthralgias or back pain Integumentary Denies abscess or Abrasions Neurologic Neurologic: Denies headache(s) Psychiatric Psychiatric: Denies anxiety Endocrine Endocrinology: Denies polydipsia or polyphagia Hematologic/Lymphatic Hematologic/Lymphatic: Denies easy bleeding or easy bruising Allergic/Immunologic Allergic/Immunologic ED: Denies mouth swelling, tongue swelling or urticaria EXAM Physical Exam Narrative Exam Narrative: Well-appearing 34-year-old male. Vital signs are stable afebrile. No acute distress. H EENT exam pupils round reactive light. Moist mucous membranes. Normal speech. Neck nontender no lymphadenopathy. Back and spine and bilateral SI joints are nontender. Lungs clear equal symmetrical. Heart regular rhythm rate about 80 no murmur. Chest wall and ribs nontender. Abdomen soft nontender. Moving all 4 extremities. Nontender. No deformity. No discoloration. 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 Both lower extremities are normal in appearance. He has normal flexion extension of both hips knees and ankles. Normal dorsi and plantarflexion of his feet. Normal strength. Normal sensation. No discoloration. No redness or warmth. The hip itself is unremarkable in appearance. He has normal internal and external rotation. No swelling or bruising. No discoloration or rash. Neurologically is awake and alert. Very benign exam. Negative straight leg raise bilaterally. Const Vital Signs: 11/05/24 11:02 Temperature 97.4 F L Temperature Source Temporal Pulse Rate 82 Respiratory Rate 15 Blood Pressure 150/81 H Blood Pressure Mean 104 Pulse Ox 99 Oxygen Delivery Method Room Air Positive well nourished and well developed; Negative for obese, cachectic, contractures or unkempt General Appearance ED: well developed and NAD; Negative for unkempt, cachectic or contractures Nutritional Appearance: Negative for cachectic or obese HEENT Reports moist mucous membranes normocephalic and atraumatic; Negative for trauma or tenderness Eyes PERRL Neck full ROM and supple Thyroid: Negative for tender Chest Wall inspection of chest normal and palpation of chest normal Chest: Negative for other Resp normal respiratory effort, no retractions and clear to auscultation bilaterally Auscultation: Negative for rales, rhonchi or wheezes Cardio regular rate, regular rhythm, S1 normal heart sound, S2 normal heart sound and no murmurs Rate: Negative for bradycardia or tachycardic Rhythm: Negative for abnormal rhythm Bruits: Negative for other GI non-tender, non-distended and no masses Inspection: Negative for abdominal distention Auscultation: normoactive bowel sounds Palpation: soft; Negative for tender, guarding or rebound tenderness present Back/Spine no CVA tenderness General Back: Negative for CVA tenderness Cervical Spine: Negative for cervical spine tenderness Thoracic Spine / Upper Back: Negative for thoracic spinal tenderness Lumbar Spine / Lower Back: Negative for lumbar spinal tenderness Extremity normal to inspection and full ROM General Extremety ED: Negative for cyanosis or edema General Extremity: Negative for cyanosis or edema Neuro oriented x3 and CN's II-XII intact bilaterally Sensorium / Orientation: alert, oriented to person, oriented to place and oriented to time; Negative for orientation impaired, confused, lethargic or stuporous Motor Exam: strength 5/5 throughout Psych mental status grossly normal Appearance: Negative for unkempt Speech: No other Mood & Affect: Negative for anxious Skin no wounds Lesions: no lesions Rashes: no rashes Trauma: Negative for abrasion, laceration or puncture MDM MDM MDM Narrative Medical decision making narrative: 34-year-old male atraumatic right hip discomfort and thigh. He does workout be consistent with a hip strain. There is no history of trauma I do not think x-rays to be of any value. He has no discoloration no fever of any value. This will be treated as a hip strain. Anti-inflammatories. Rest and if not improving further evaluation. He and his are comfortable with the plan. No signs of sciatica. History & Record Review Discussion w/independent historian: Patient Additional record(s) reviewed:: Prior inpatient record, Prior outpatient record, Prior ED visit and Prior labs Discharge Plan Triage Chief Complaint: Lower Extremity Injury ED Provider: Estuardo Mar Dx/Rx/DC Orders Clinical Impression: Hip strain Instructions: ED Hip Strain Prescriptions: No Action lisinopril 10 mg tablet 10 mg PO DAILY Patient Comments: TAKE 1 TABLET BY MOUTH ONCE DAILY escitalopram oxalate [Lexapro] 10 mg tablet 10 mg PO DAILY Eliquis DVT-PE Treat 30D Start 5 mg (74 tabs) tablets,dose pack 5 mg PO BID Qty: 74 0RF Primary Care Provider: Dilia Zavala Referrals: Dilia Zavala, PA-C [Primary Care Provider] - 1 Week if not improving Activity Restrictions/Additional Instructions: Strain of your hip muscles. Ice to decrease pain and inflammation. Hot shower, warm bath, hot tub and massage to help with the discomfort and relax the muscles. Motrin, Advil or ibuprofen 600 mg 3 times a day for pain and inflammation. You can alternate with Tylenol in between to help with pain. This should progressively get better over the next several days to a week. I would take it easy on your workouts to help rest the hip and muscles. And that should progressively start improving. If not follow-up with your primary care provider. If you would develop a fever or redness in the area or swelling return to be reevaluated. At this time x-rays and blood work would not be of any value. Print Language: [place] Disposition Disposition: Home, Self Care
== END 2024-11-05 11:51 | disposition home or self-care (01) ==
LOC: ED 11:39
PROVIDERS: Emergency Provider Emergency Medicine; PCP Family Medicine; Visit Provider Emergency Medicine
DX: S76.011A Strain of muscle, fascia and tendon of right hip, initial encounter (principal); I10 Essential (primary) hypertension; X58.XXXA Exposure to other specified factors, initial encounter; F32.A Depression, unspecified; F41.9 Anxiety disorder, unspecified; Z87.442 Personal history of urinary calculi; Z86.711 Personal history of pulmonary embolism; Z79.899 Other long term (current) drug therapy
CPT/HCPCS: 99282

== ENCOUNTER → 2025-06-29 | Outpatient (CLI) | payer OTHER, SELFPAY ==
[2025-06-29 14:05] LABS: AST(SGOT) 27 U/L (<=37); Alanine Aminotransfer ALT/SGPT 18 U/L (<=46); Albumin, Serum 4.4 g/dL (3.5-5.0); Alkaline Phosphatase 61 U/L (40-129); Anion Gap 11 (5-15); BUN 27 mg/dL (4-19); BUN/Creat Ratio 25.3 RATIO (10-20); Calcium,Total 9.4 mg/dL (7.6-11.0); Carbon Dioxide 25.1 mmol/L (21.0-32.0); Chloride 102 mmol/L (98-108); Globulin 3.3 g/dL (2.2-4.2); Glucose 99 mg/dL (70-99); Potassium 4.3 mmol/L (3.3-5.1)
== END | disposition home or self-care (01) ==
LOC: LAB 13:05
PROVIDERS: PCP Family Medicine; Referring Provider Family Medicine; Visit Provider Family Medicine
DX: Z13.1 Encounter for screening for diabetes mellitus (principal)
CPT/HCPCS: 36415; 80053